=== PATIENT | female | born 1990 ===

== ENCOUNTER 2018-04-10 15:02 | Emergency (ER) | payer MEDICAID ==
[2018-04-10 15:11] VITALS: BP 119/82; PULSE 75; RESP 18; TEMP 97.9; O2SAT 98
--- NOTE | 2018-04-10 16:07 | C.PDOC ---
History Of Present Illness 27 y/o female with history of varicose veins presents to ED with c/o left leg pain for 2 days. Patient denies injury, chest pain, sob, numbness, fever, chills or any other complaints at this time. Time Seen by Provider: 04/10/18 15:15 Chief Complaint (Nursing): Lower Extremity Problem/Injury History Per: Patient History/Exam Limitations: no limitations Onset/Duration Of Symptoms: Days Current Symptoms Are (Timing): Still Present Past Medical History Reviewed: Historical Data, Nursing Documentation, Vital Signs Vital Signs: Last Vital Signs Temp 97.9 F 04/10/18 15:08 Pulse 75 04/10/18 15:08 Resp 18 04/10/18 15:08 BP 119/82 04/10/18 15:08 Pulse Ox 98 04/10/18 20:02 - Medical History PMH: No Chronic Diseases Surgical History: No Surg Hx Family History: States: No Known Family Hx - Social History Hx Alcohol Use: No Hx Substance Use: No Review Of Systems Constitutional: Negative for: Fever, Chills Cardiovascular: Negative for: Chest Pain Musculoskeletal: Positive for: Leg Pain Skin: Negative for: Rash, Bruising Neurological: Negative for: Weakness, Numbness Physical Exam - Physical Exam Appears: Non-toxic, No Acute Distress Skin: Warm, Dry, No Rash Head: Atraumatic, Normacephalic Eye(s): bilateral: Normal Inspection Oral Mucosa: Moist Neck: Normal ROM Chest: Symmetrical Extremity: Normal ROM, Calf Tenderness (mild to left calf and varicose veins present), Capillary Refill (<2 seconds), No Deformity, No Swelling Extremity: Bilateral: Normal ROM Neurological/Psych: Oriented x3, Normal Speech, Normal Motor, Normal Sensation ED Course And Treatment O2 Sat by Pulse Oximetry: 98 (RA) Pulse Ox Interpretation: Normal Medical Decision Making Medical Decision Making: Impression: left leg pain, varicose veins Plan: * Doppler study Progress: Doppler study negative for DVT Patient is stable and in no distress. Recommend leg elevation, compression stockings and NSAIDs. Patient advised with vascular surgeon Disposition Counseled Patient/Family Regarding: Studies Performed, Diagnosis, Need For Followup - Disposition Referrals: Sam Garcia Jr., MD [Staff Provider] - Disposition: HOME/ ROUTINE Disposition Time: 16:05 Condition: GOOD Additional Instructions: Elevate legs when at rest, may consider wearing compression stockings Take Advil or Aleve for any pain Instructions: Varicose Veins (DC) Forms: [employer] (French) - POA Present On Arrival: None - Clinical Impression Clinical Impression: Varicose veins of left lower extremity - PA / LOW VOLTAGE TECHNICIAN / Resident Statement MD/DO has reviewed & agrees with the documentation as recorded. - Scribe Statement The provider has reviewed the documentation as recorded by the Amandaibnancy Mancera All medical record entries made by the Ace were at my direction and personally dictated by me. I have reviewed the chart and agree that the record accurately reflects my personal performance of the history, physical exam, medical decision making, and the department course for this patient. I have also personally directed, reviewed, and agree with the discharge instructions and disposition.
--- NOTE | 2018-04-11 14:29 | VASCLAB ---
Date of service: 04/10/2018 PROCEDURE: Left Lower Extremity Venous Duplex Exam. HISTORY: pain left calf PRIORS: None. TECHNIQUE: Left common femoral, femoral, popliteal and posterior tibial, peroneal and great saphenous veins were evaluated. Flow was assessed with color Doppler, compressibility, assessment of phasic flow and augmentation response. Report prepared by NINFA Anna, RVT FINDINGS: LEFT: 1. Common Femoral Vein: 1.1. Compressibility - Fully compressible: Thrombus - None : Flow - Phasic: Augmentation -Normal: Reflux - None. 2. Femoral Vein: 2.1. Compressibility - Fully compressible: Thrombus - None: Flow - Phasic: Augmentation -Normal: Reflux - None. 3. Popliteal Vein: 3.1. Compressibility - Fully compressible: Thrombus - None: Flow - Phasic: Augmentation -Normal: Reflux - None. 4. Posterior Tibial Vein: 4.1. Compressibility - Fully compressible: Thrombus - None: Flow - Phasic: Augmentation -Normal: Reflux - None. 5. Peroneal Vein: 5.1. Compressibility - Fully compressible: Thrombus - None: Flow - Phasic: Augmentation -Normal: Reflux - None. 6. Great Saphenous Vein: 6.1. Compressibility - Fully compressible: Thrombus - None: Flow - Phasic: Augmentation - Normal: Reflux - None. OTHER FINDINGS: IMPRESSION: No evidence of deep or superficial vein thrombosis of the left lower extremity with excellent venous flow. Normal valve function noted of the left side. Normal venous flow noted in the right common femoral vein.
== END 2018-04-10 16:19 | disposition home or self-care (01) ==
LOC: C.ER 15:02
DX: I83.92 Asymptomatic varicose veins of left lower extremity (principal)